=== PATIENT | male | born 1955 | race Caucasian/White ===

== ENCOUNTER 2023-10-27 17:25 | Emergency (ER) | payer BC, SELFPAY ==
[2023-10-27 17:26] VITALS: BP 182/98
[2023-10-27 17:49] VITALS: BP 151/98
[2023-10-27 17:50] VITALS: BMI 25.1
--- NOTE | 2023-10-27 17:59 | ED.GENMED ---
History of Present Illness
<David Vera PA-C - Last Filed: 10/28/23 15:37>
General
Chief Complaint: Rectal Bleeding
Source: patient
Time Seen by Provider: 10/27/23 17:46
Travel History
Have you had any contact with someone who has COVID-19?: No
Do you have any symptoms of coronavirus? Fever > 100 degrees, chills, cough, shortness of breath, sore throat, loss of taste or smell, muscle aches, or headache?: No
History of Present Illness
History of Present Illness:
68-year-old male with past medical history of asthma presented emergency department for evaluation after he had 2 separate episodes of a sudden urge to have a bowel movement and when he went to have a bowel movement noticed that it was just blood,
on the second bowel movement did have some brownish colored stool intermixed. States he never had any pain associated with the symptoms and only the sudden urge to have a bowel movement. He denies any history of similar. Denies any use of
anticoagulants. He is also denying any lightheadedness, dizziness, focal weakness or numbness, fevers or recent illnesses, chest pain or shortness of breath or any other concerns. He does note a history of being a former smoker. Family history
was significant for sister having diverticulitis. No family history of colorectal cancers. No other concerns.
Past History
<David Vera PA-C - Last Filed: 10/28/23 15:37>
Past History
ED Past Medical History: Asthma
ED Past Surgical History: None
Social History
Tobacco: Former smoker
Alcohol: None
Drug: None
Personal:
Living: with family
Employment: Employed
Family History
Family History: Early CAD (Brother with [place] in his 40's)
Review of Systems
<David Vera PA-C - Last Filed: 10/28/23 15:37>
Review of Systems
All Other Systems: ROS reviewed and negative except as documented in HPI and ROS
Phy Exam
<David Vera PA-C - Last Filed: 10/28/23 15:37>
Physical Exam
Physical Exam:
GENERAL: Alert , in no apparent distress
EYE: clear conjunctiva b/l
HEAD: NCAT
ENT: o/p clr, mmm.
CARDIAC: Regular rate and rhythm .
LUNGS: Clear breath sounds bilaterally, no acute respiratory distress, no wheezes/rales/rhonchi
ABDOMEN: Soft, without focal tenderness, no r/g, no cvat
Rectal exam: Chaperoned by ED JAVED Avelar, no stool within the rectum, streak of blood noted but no internal or external hemorrhoids appreciated
NEUROLOGICAL: Alert and oriented
SKIN: Warm and dry, skin intact.
MUSCULOSKELETAL: well perfused.
PSYCH: Normal and appropriate interaction.
Scores
<David Vera PA-C - Last Filed: 10/28/23 15:37>
Heart Failure Risk
Heart Failure Risk Score: Not Applicable
Heart Score for Chest Pain Patients
STEMI patient?: Not applicable
Withdrawal Assessment of Alcohol
Withdrawal Assessment Completed?: Not applicable
Course
<David Vera PA-C - Last Filed: 10/28/23 15:37>
Orders/Labs/Results
Orders:
Orders
10/27/23 17:54
Type+Screen Urgent
CMP [Comprehensive Metabolic Panel] Urgent
Complete Blood Count/With Diff Urgent
10/27/23 17:57
CT Abd/pelvis W Iv Cont Urgent
Comment:
Reason For Exam: GI bleeding, minimal pain
10/27/23 18:40
PTT Urgent
Prothrombin Time Urgent
10/27/23 19:18
Diphenhydramine [Benadryl] 50 mg IV NOW STA
Hydrocortisone Sod Succinate [Solu-Cortef] 200 mg IV NOW STA
Abnormal Lab Results
10/27/23
17:54
MCH 32.0 H pg
(27.0-31.0)
Potassium 3.4 L mmol/L
(3.5-5.1)
BUN 23 H mg/dl
(9-20)
10/27/23 17:54
10/27/23 17:54
Vital Signs
Initial and Last Documented VS:
Initial Vital Signs
Temp Pulse Resp BP Pulse Ox
97.4 F 56 20 182/98 98
10/27/23 17:26 10/27/23 17:26 10/27/23 17:26 10/27/23 17:26 10/27/23 17:26
Last Documented Vital Signs
Temp Pulse Resp BP Pulse Ox
97.4 F 59 13 174/89 96
10/27/23 17:26 10/27/23 21:00 10/27/23 21:00 10/27/23 21:00 10/27/23 21:00
Dwightlt;John Paul Bustamante, DO - Last Filed: 10/27/23 21:49>
Orders/Labs/Results
Orders:
Orders
10/27/23 17:54
Type+Screen Urgent
CMP [Comprehensive Metabolic Panel] Urgent
Complete Blood Count/With Diff Urgent
10/27/23 17:57
CT Abd/pelvis W Iv Cont Urgent
Comment:
Reason For Exam: GI bleeding, minimal pain
10/27/23 18:40
PTT Urgent
Prothrombin Time Urgent
10/27/23 19:18
Diphenhydramine [Benadryl] 50 mg IV NOW STA
Hydrocortisone Sod Succinate [Solu-Cortef] 200 mg IV NOW STA
Abnormal Lab Results
10/27/23
17:54
MCH 32.0 H pg
(27.0-31.0)
Potassium 3.4 L mmol/L
(3.5-5.1)
BUN 23 H mg/dl
(9-20)
10/27/23 17:54
10/27/23 17:54
Vital Signs
Initial and Last Documented VS:
Initial Vital Signs
Temp Pulse Resp BP Pulse Ox
97.4 F 56 20 182/98 98
10/27/23 17:26 10/27/23 17:26 10/27/23 17:26 10/27/23 17:26 10/27/23 17:26
Last Documented Vital Signs
Temp Pulse Resp BP Pulse Ox
97.4 F 59 13 174/89 96
10/27/23 17:26 10/27/23 21:00 10/27/23 21:00 10/27/23 21:00 10/27/23 21:00
<David Vera PA-C - Last Filed: 10/28/23 15:37>
MDM/Problems Addressed
Differential Diagnosis Includes:
Internal/external hemorrhoid, diverticular bleed, less concern for upper GI bleeding, infectious colitis
MDM/Problems Addressed:
68-year-old male present emergency department for evaluation of 2 separate episodes of bright red blood per rectum and sudden urge to have a bowel movement. Patient currently denying any pain and is otherwise hemodynamically stable. Denies any use
of anticoagulants. I suspect either a ruptured hemorrhoid versus diverticular bleed to be the most likely diagnosis. CT of the abdomen pelvis ordered. Lab work ordered. Patient remains hemodynamically stable.
<David Vera PA-C - Last Filed: 10/28/23 15:37>
*Pulse Oximetry
Patient hypoxic: no
*Critical Care Note
Total Time (30-74mins, 75-104mins- exclusive of procedures): Not Applicable
Data Reviewed
Review of Other/Old Records Reveals: Labs and Radiology Studies
<David Vera PA-C - Last Filed: 10/28/23 15:37>
Comment
Comment:
Patient has reported IVP dye allergy. benadryl and prednisone ordered
10/27/2023 2102 PM: Patient resting comfortably in no acute distress. White blood cell count and hemoglobin are reassuring. Remaining labs are otherwise unremarkable. CT pending.
ED Attending Note
<David Vera PA-C - Last Filed: 10/28/23 15:37>
-
Portions of this chart may have been created with voice recognition software.� Occasional wrong word or��sound alike� substitutions may have occurred due to the inherent limitations of voice recognition software.
<John Paul Bustamante DO - Last Filed: 10/27/23 21:49>
ED Attending Note
Patient seen and examined by attending physician: Yes
I performed the substantive portion of visit, reviewed & personally made and approve the management plan that is documented in note by myself or LAVON.: Yes
ED Attending Note:
I have seen and evaluated the patient with a [id number] encounter. I have spoken to the advance practicer provider and involved in the medical history, the physical exam, medical decision making.
Evaluation and management service: agree unless noted differently below.
Results interpretation: agree unless noted differently below.
Focused HPI: 68-year-old male presenting for evaluation of resolving rectal bleeding. He noticed a sudden onset of diarrhea. When he looked in the toilet, it was blood. It was described as bright red. He had another episode later in the day but
this was also combined with brown stool. He denies being on blood thinners. Denies weakness, fatigue or abdominal
Physical exam: Sitting in bed comfortably. No abdominal tenderness
Medical Decision Making: CT consistent with diverticulosis. This is a new diagnosis for him. We discussed outpatient follow-up with gastroenterology. He was given the option of admission versus discharge but he feels comfortable going home.
Discharge Plan
Departure
Patient Disposition: Home (Routine Discharge)
Date of Disposition: 10/27/23
Time of Disposition: 21:43
Patient with high blood pressure during this ER visit?: Yes
Discharge Problem:
Diverticulosis of colon
Instructions: Diverticulosis (DC), BLOOD PRESSURE
Prescriptions:
No Action
cetirizine 10 mg Tablet
10 mg PO HSPRN PRN (Reason: allergies)
Theragen Tablet
1 tab PO DAILY PRN (Reason: supplement)
Patient Comments:
10/27/2023, pt. takes roughly 2 times per week.
acetaminophen [Tylenol Extra Strength] 500 mg Tablet
1,000 mg PO HS
ibuprofen [Advil] 200 mg Tablet
600 mg PO BID
Patient Comments:
10/27/2023, per pt., for past two weeks, pt. has been taking this med. BID for arthritis pain.
albuterol sulfate 90 mcg/actuation Hfa Aerosol Inhaler
1 puff INHALATION R Q4HPRN PRN (Reason: sob)
omega 6-iqu-tif-fish oil [Fish Oil] 1,200 (144-216) mg Capsule
1 cap PO BID
magnesium oxide 400 mg magnesium Tablet
400 mg PO QPM
Visine
1 drp BOTH EYES DAILYPRN PRN (Reason: dry eyes)
Referrals:
Jaren Manning MD [Active] -
Yana Cabezas DO [Family Provider] -
Activity Restrictions/Additional Instructions:
Please return for any worsening symptoms.
You may return at any time if you have further concerns.
Please follow up with your doctor at the first available appointment, preferably this week.
Please make an appointment to see the real time trader.
Thank you for choosing [facility].
Interventions
Interventions:
*Risk Screen - Suicide Last Done: 10/27/23 17:26
*General Assessment Last Done: 10/27/23 17:26
*Neglect/Abuse Screening Last Done: 10/27/23 17:26
ED- Fall Risk Assessment Last Done: 10/27/23 17:50
*ED COVID-19 Vaccine History Last Done: 10/27/23 17:50
*Nursing Disposition Last Done: 10/27/23 21:56
ZD-[id number]-Hqszaanfok Assessment Last Done: 10/27/23 17:50
ED- Cardiac Assessment Last Done: 10/27/23 17:50
ED- Pulmonary Assessment Last Done: 10/27/23 17:50
Discharge Date and Time
Discharge Date/Time: 10/27/23 21:57
[2023-10-27 18:00] VITALS: BP 161/101
[2023-10-27 18:05] LABS: % Basophils 0.6 % (0-2); % Eosinophils 4.7 % (0-6); % Immature Granulocytes 0.2 % (0-0.5); % Lymphocytes 33.5 % (20.5-51.1); % Monocytes 8.1 % (1.7-9.3); % Neutrophils 52.9 % (42.2-75.2); Absolute Eosinophils 0.3 10^3/uL (0-0.7); Absolute Lymphocytes 2.2 10^3/uL (1.2-3.4); Absolute Monocytes 0.5 10^3/uL (0.1-0.6); Absolute Neutrophils 3.4 10^3/uL (1.4-6.5); Hematocrit 45.5 % (39.0-52.0); Hemoglobin 15.7 g/dL (13.0-18.0); Mean Corp Hgb Conc. 34.5 g/dL (33.0-37.0); Mean Corpuscular Volume 92.7 fL (80.0-94.0); Mean Platelet Volume 8.9 fL (7.4-10.4); Nucleated Red Blood Cells % 0 % (-); Platelet Count 271 10^3/uL (130-400); Red Blood Cell Count 4.91 10^6/uL (4.70-6.10); Red Cell Dist. Width 12.9 % (11.5-14.5); White Blood Cell Count 6.5 10^3/uL (4.8-10.8)
[2023-10-27 18:24] LABS: ALT (SGPT) 30 U/L (0-50); AST (SGOT) 37 U/L (17-59); Albumin 4.3 g/dl (3.5-5.0); Alkaline Phosphatase 68 U/L (38-126); Blood Urea Nitrogen 23 mg/dl (9-20); Calcium 8.6 mg/dl (8.4-10.2); Carbon Dioxide 25 mmol/L (22-30); Chloride 106 mmol/L (98-107); Estimated Creatinine Clearance 73 ml/min; Glucose 96 mg/dl (70-99); Potassium 3.4 mmol/L (3.5-5.1); Sodium 137 mmol/L (135-145); Total Bilirubin 0.8 mg/dl (0.2-1.3); Total Protein 7.3 g/dl (6.3-8.2); eGFR > 60.00
[2023-10-27 19:05] LABS: INR 1.05; PT 13.6 Sec (11.4-14.6)
[2023-10-27 19:06] LABS: APTT 27.7 Sec (23.4-35.0)
[2023-10-27] MEDS: BENADRYL 50 MG IV (19:38)
[2023-10-27] MEDS: SOLU-CORTEF 200 MG IV (19:39)
[2023-10-27 19:50] VITALS: BP 181/103
[2023-10-27 20:00] VITALS: BP 161/104
[2023-10-27 21:00] VITALS: BP 174/89
== END 2023-10-27 21:57 | disposition home or self-care (01) ==
LOC: EMR 17:25
PROVIDERS: Physician Assistant Medical; EMERGENCY PHYSICIAN Student in an Organized Health Care Education/Training Program; FAMILY PHYSICIAN Internal Medicine
DX: K57.30 Diverticulosis of large intestine without perforation or abscess without bleeding (principal)
CPT/HCPCS: 99285; 96374; 96375; 74177; 80053; 85025; 85610; 85730; 86850; 86900; 86901; Q9967

== ENCOUNTER 2025-05-31 07:05 | Emergency (ER) | payer MEDICARE, OTHER, SELFPAY ==
[2025-05-31 07:09] VITALS: BP 165/99
--- NOTE | 2025-05-31 07:29 | ED.GENMED ---
History of Present Illness
General
Chief Complaint: Breathing Problem
Source: patient
Exam Limitations: none
Time Seen by Provider: 05/31/25 07:16
History of Present Illness
History of Present Illness:
69yoM with a history of asthma and cervical radiculopathy presenting for evaluation of shortness of breath. Patient underwent a C6/C7 nerve block 2 days ago at the [facility] with [facility] orthopedics. He was given 50mg prednisone
x 3 to take starting 12 hours before the procedure due to a history of a IV contrast allergy. He biked for 10 miles yesterday without any difficulties. He woke up around 5am this morning and felt a tightness sensation in his chest which felt like
his asthma symptoms. He states it felt like he was going to stop breathing. He took his inhaler without any relief and decided to come to the ED. He coughed up some phlegm later in the morning which was greenish and started to feel improved
afterwards. He is currently feeling better but now feels lightheaded and states it feels like 'something is not right.' Of note, patient has been using his rescue inhaler at least 2x daily over the past few weeks. He has been prescribed Flovent
for maintenance but he has not used this in about a year because his asthma has been controlled. No tobacco use.
Past History
Past History
ED Past Medical History: Asthma
ED Past Surgical History: None
Social History
Tobacco: Former smoker
Alcohol: None
Drug: None
Personal:
Living: with family
Employment: Employed
Family History
Family History: Early CAD (Brother with [place] in his 40's)
Phy Exam
General Physical Exam
General Presentation: well appearing and no apparent distress
General Skin: warm and dry
General Habitus: normal
General Mental: alert
ENT Exam
ENT Exam: normocephalic
Cardiovascular Exam
Cardiovascular Exam: regular rate/rhythm, no edema, no murmur and normal peripheral pulses (2+ radial and DP pulses bilaterally)
Pulmonary Exam
Pulmonary Exam: no respiratory distress, no rhonchi, no stridor, no wheezing and other (Bibasilar rales noted. No wheezing. Speaking in full sentences without difficulty. )
Neurological Exam
Neurological Exam: alert
[place] Coma Scale
Eye Opening: Spontaneous
Verbal Response: Oriented
Motor Response: Obeys Commands
GCS Total Score: 15
Skin Exam
Skin Exam: normal color and warm/dry
Psychiatric Exam
Psychiatric Exam: normal mood/affect
Scores
Heart Failure Risk
Heart Failure Risk Score: Not Applicable
Course
Orders/Labs/Results
Orders:
Orders
05/31/25 07:14
Electrocardiogram (*1) Urgent
Reason for Study: Shortness of Breath
EKG- Treatment ONCE
05/31/25 07:28
CR Chest - 2 Views Urgent
Comment:
Reason For Exam: SOB
05/31/25 07:29
Cardiac Monitoring- Treatment ONCE
05/31/25 07:54
COVID-19 Antigen Urgent
Source: Nasal Swab
Complete Blood Count/With Diff Urgent
Influenza A+B Rapid Molecular Urgent
HECTOR Source: Nasal Swab
Specimen Description:
05/31/25 07:55
Comprehensive Metabolic Panel Urgent
Troponin I Urgent
05/31/25 08:58
EKG- Treatment ONCE
05/31/25 11:00
Electrocardiogram (*1) Urgent
Reason for Study: Shortness of Breath
05/31/25 11:15
Troponin I Urgent
Abnormal Lab Results
05/31/25 05/31/25
07:54 07:55
RBC 4.46 L 10^6/uL
(4.70-6.10)
MCH 32.1 H pg
(27.0-31.0)
Absolute Monos (auto) 0.7 H 10^3/uL
(0.1-0.6)
Neutrophils % 39.8 L %
(42.2-75.2)
Monocytes % 11.5 H %
(1.7-9.3)
BUN 29 H mg/dl
(9-20)
05/31/25 07:54
05/31/25 07:55
Vital Signs
Initial and Last Documented VS:
Initial Vital Signs
Temp Pulse Resp BP Pulse Ox
98.2 F 58 16 165/99 97
05/31/25 07:09 05/31/25 07:09 05/31/25 07:09 05/31/25 07:09 05/31/25 07:09
Last Documented Vital Signs
Temp Pulse Resp BP Pulse Ox
98.2 F 52 14 167/98 97
05/31/25 07:09 05/31/25 12:00 05/31/25 11:00 05/31/25 12:00 05/31/25 12:00
MDM/Problems Addressed
Differential Diagnosis Includes:
69yoM here with chest tightness and SOB that began this morning. [place] like his asthma sx but did not improve after using inhaler. Now feeling better after coughing up phlegm. He is well appearing in no distress. Oxygen saturation 97% on room air.
Bibasilar rales noted on exam. No wheezing or peripheral edema noted. Differential diagnosis includes but is not limited to: asthma exacerbation, bronchitis, pneumonia, atelectasis, consider ACS
Initial ED plan: Triage EKG shows sinus bradycardia without ischemic changes. Will check cardiac labs, COVID/flu swab, and CXR.
*Pulse Oximetry
SaO2: 97
Oxygen Mode of Delivery: Room air
Patient hypoxic: no
*EKG
Interpreted by ED Provider?: Yes
EKG Intrepretation Date: 05/31/25
Heart Rate: 49
Rate: bradycardiac
Rhythm: sinus
[place]: normal axis
Interval: normal interval
QRS Pattern: normal QRS
Ischemia: no ischemia
*Critical Care Note
Total Time (30-74mins, 75-104mins- exclusive of procedures): Not Applicable
Update Note
Update Note:
Labs unremarkable including normal white count. COVID/flu swab negative. Troponin within normal limits. Chest x-ray clear. Repeat EKG/troponin performed at 3 hours which are unchanged. Patient remains asymptomatic on multiple reassessments. No
episodes of hypoxia throughout ED stay. Patient stable for discharge. Suspect his symptoms this morning were related to his asthma. He was advised to restart his Flovent as he has not been compliant with this. He was instructed to follow-up with
his PCP and ED return precautions reviewed. Patient in agreement plan and was discharged in stable condition.
ED Attending Note
-
Portions of this chart may have been created with voice recognition software.� Occasional wrong word or��sound alike� substitutions may have occurred due to the inherent limitations of voice recognition software.
Discharge Plan
Departure
Patient Disposition: Home (Routine Discharge)
Date of Disposition: 05/31/25
Time of Disposition: 12:18
Patient with high blood pressure during this ER visit?: Yes
Discharge Problem:
Shortness of breath
Instructions: Shortness of Breath (Dyspnea) (DC)
Prescriptions:
No Action
cetirizine 10 mg Tablet
10 mg PO HSPRN PRN (Reason: allergies)
Theragen Tablet
1 tab PO DAILY PRN (Reason: supplement)
Patient Comments:
10/27/2023, pt. takes roughly 2 times per week.
acetaminophen [Tylenol Extra Strength] 500 mg Tablet
1,000 mg PO HS
ibuprofen [Advil] 200 mg Tablet
600 mg PO BID
Patient Comments:
10/27/2023, per pt., for past two weeks, pt. has been taking this med. BID for arthritis pain.
albuterol sulfate 90 mcg/actuation Hfa Aerosol Inhaler
1 puff INHALATION R Q4HPRN PRN (Reason: sob)
omega 3-orw-qvy-fish oil [Fish Oil] 1,200 (144-216) mg Capsule
1 cap PO BID
magnesium oxide 400 mg magnesium Tablet
400 mg PO QPM
Visine
1 drp BOTH EYES DAILYPRN PRN (Reason: dry eyes)
Referrals:
Yana Cabezas DO [Family Provider, Family Practice]
Activity Restrictions/Additional Instructions:
Restart your Flovent. Continue using albuterol as needed for wheezing/tightness.
Please follow-up with your family doctor in the next 2 to 3 days. Return to the ER with any new or worsening symptoms.
Interventions
Interventions:
*Risk Screen - Suicide Last Done: 05/31/25 07:09
*Neglect/Abuse Screening Last Done: 05/31/25 07:09
*ED- Fall Risk Assessment Last Done: 05/31/25 07:41
*ED COVID-19 Vaccine History Last Done: 05/31/25 07:41
*Nursing Disposition Last Done: 05/31/25 12:39
ED- Cardiac Assessment Last Done: 05/31/25 07:41
ED- Pulmonary Assessment Last Done: 05/31/25 07:41
Discharge Date and Time
Discharge Date/Time: 05/31/25 13:19
Print Language: MALIAN
[2025-05-31 07:38] VITALS: BMI 27.2
[2025-05-31 07:41] VITALS: BP 150/87
[2025-05-31 08:12] LABS: Hematocrit 41.3 % (39.0-52.0); Hemoglobin 14.3 g/dL (13.0-18.0); Mean Corp Hgb Conc. 34.6 g/dL (33.0-37.0); Mean Corpuscular Volume 92.6 fL (80.0-94.0); Nucleated Red Blood Cells % 0 % (-); Platelet Count 262 10^3/uL (130-400); Red Cell Dist. Width 13.5 % (11.5-14.5)
[2025-05-31 08:31] LABS: COVID-19 Antigen Negative (Negative)
[2025-05-31 08:43] LABS: ALT (SGPT) 29 U/L (0-50); AST (SGOT) 33 U/L (17-59); Albumin 4.0 g/dl (3.5-5.0); Alkaline Phosphatase 55 U/L (38-126); Blood Urea Nitrogen 29 mg/dl (9-20); Calcium 9.0 mg/dl (8.4-10.2); Carbon Dioxide 30 mmol/L (22-30); Chloride 105 mmol/L (98-107); Estimated Creatinine Clearance 65 ml/min; Glucose 90 mg/dl (70-99); Potassium 4.0 mmol/L (3.5-5.1); Sodium 140 mmol/L (135-145); Total Protein 6.9 g/dl (6.3-8.2); eGFR > 60.00
[2025-05-31 08:50] LABS: Troponin I 0.015 ng/ml
[2025-05-31 11:00] VITALS: BP 160/84
[2025-05-31 12:00] VITALS: BP 167/98
[2025-05-31 12:05] LABS: Troponin I 0.014 ng/ml
== END 2025-05-31 13:19 | disposition home or self-care (01) ==
LOC: EMR 07:05
PROVIDERS: Physician Assistant; EMERGENCY PHYSICIAN Emergency Medicine; FAMILY PHYSICIAN Internal Medicine
DX: R06.02 Shortness of breath (principal); R00.1 Bradycardia, unspecified; J45.909 Unspecified asthma, uncomplicated; M54.12 Radiculopathy, cervical region; T49.1X6A Underdosing of antipruritics, initial encounter; Z91.128 Patient's intentional underdosing of medication regimen for other reason; Z87.891 Personal history of nicotine dependence; Z82.49 Family history of ischemic heart disease and other diseases of the circulatory system
CPT/HCPCS: 99284; 71046; 80053; 84484; 85025; 87502; 87811; 93005